=== PATIENT | female | born 1930 | race Caucasian/White ===

== ENCOUNTER 2017-01-13 09:04 | Inpatient (IN) | payer MEDICARE ==
[~2017-01-13] VITALS: Ht 157.5 cm; Wt 44.6 kg
[~2017-01-13 09:04] MED LIST: ACYCLOVIR 400M400 MG PO; AGGRENOX (D1 CAPSULE PO; CALCIUM 600600 M2 PO; FLAGYL500 M1 PO; FOLIC ACID0.4 MG PO; FOLIC ACID1 MG PO; MELOXICAM15 MG PO; METHOTREXATE 22.5 MG PO; Mobic7.5 MG; NITROFURANTOIN50 MG PO; OMEPRAZOLE40 MG PO; PINDOLOL10 MG PO; VICODIN 5/500 T1 TAB PO; VITAMIN D1000 IU PO
[2017-01-13 09:08] VITALS: BP 146/81
--- NOTE | 2017-01-13 09:11 | Emergency Room Report ---
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 Clinical Suspician of Infection? Mental Status: Sepsis Risk: Have you (or family members/close friends) recently traveled outside the [place]? If Yes, where/when: Have you had exposure to infectious disease within the past month? TB? Other? Specify: Source patient, RN notes reviewed Exam Limitations no limitations Comment Pt seen here on January 08 and January 11 for diarrhea and a UTI and comes back today with perrsist diarrhea. She has a history of RA and treated with some immunosuppressive drugs and is being followed by a at [facility] for some type of blood disorder felt to be due to those meds. She comes back to the ED today for worsening diarrhea and just feels really weak and run down. She is not eating or drinking much and appears to be dehydrated and pale at this time. She has had to have blood transfusions in the past Cardiac Chest Pain Chest pain indicative of cardiac No Timing/Duration week Severity moderate ALLERGIES Coded Allergies: Sulfa (Sulfonamide Antibiotics) (Mild, 01/08/17) heparin (Mild, 01/08/17) Home Medications Active Scripts Metronidazole (Flagyl) 500 MG PO TID #30 TAB Prov: 01/08/17 Reported Medications Omeprazole (Omeprazole 40MG) 40 MG PO DAILY #90 Meloxicam (Meloxicam 15MG) 15 MG PO BID #90 Folic Acid 2 MG PO DAILY #60 Aspirin 25/Dipyridamole 200MG (Aggrenox 25 MG-200 MG Capsule) 1 CAPSULE PO BID Methotrexate 2.5 MG PO WEEKLY CHOLECALCIFEROL (VITAMIN D3) (Vitamin D3) 1,000 IUNITS PO DAILY CALCIUM CARBONATE (Calcium Carbonate) 600 MG PO DAILY Pindolol 10 MG PO DAILY #180 NITROFURANTOIN MACROCRYSTAL (Nitrofurantoin) 50 MG PO DAILY #56 History Medical History General CAD? No Angina: No AR: No Hypertension? Yes Hyperlipidemia? Yes CHF? No COPD? No Asthma? No Anemia? Yes Hernia? No Thyroid Problems? No Hypothyroidism? No CVA? Yes Seizures? No Diabetes? No End Stage Renal Disease? No UTI? No Stones? No GB Disease: No Nephritic Syndrome? No Asplenia? No Hepatitis? No Sickle Cell Disease? No Arthritis? Yes Cataracts? No Glaucoma? No MRSA? No TB? No Cancer? No Immunization Hx DT/Tetanus Unknown Flu [id number] Flu Season Pneumonia Received In Past Surgical Hx Previous Surgery?Y HAND SURGERY-BILATERAL FOOT SURGERY Tonsils WRIST SURGERY-BILATERAL BILATERAL HIP LEFT KNEE Family History Family Hx Diabetes No CAD Yes Hypertension Yes Hyperlipidemia No Cancer No TB No Social History Alcohol Alcohol: No Review of Systems All Other Systems Reviewed and Negative Constitutional see HPI Gastrointestinal see HPI Physical Exam Vital Signs Vital Signs Date Time Temp Pulse Resp B/P Pulse O2 O2 Flow FiO2 Ox Delivery Rate 01/13 1229 87 16 132/67 98 01/13 1152 92 16 133/66 97 01/13 1103 101 16 129/65 94 01/13 1020 96 18 142/67 98 01/13 0952 102 18 139/75 97 01/13 0908 98.5 101 16 146/81 99 General Appearance moderate distress, cachetic, fatigued, pale Respiratory Status No: respiratory distress. 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 No Results/Orders Laboratory Tests 01/13/17 0920: Sodium 138, Potassium 3.1 L, Chloride 104, Carbon Dioxide 23, BUN 12, Creatinine 1.1 H, Estimated Creat Clear 24 L, Estimated GFR (MDRD) 47 L, Glucose 164 H, Calcium 7.5 L, Total Bilirubin 0.6, AST 14 L, ALT 11 L, Alkaline Phosphatase 65, Total Protein 5.5 L, Albumin 2.3 L, Globulin 3.2, Albumin/Globulin Ratio 0.7 L, WBC 5.5, RBC 3.05 L, Hgb 10.0 L, Hct 30.0 L, MCV 98.4 H, RDW 16.4, Plt Count 199, MPV 6.1 L, Gran % 77.2, Gran # 4.3, Lymphocytes % 10.8, Monocytes % 11.1 H, Eosinophils % 0.7, Basophils % 0.2, Lymphocytes # 0.6 L, Monocytes # 0.6, Eosinophils # 0.0, Basophils # 0.0, PUBS MCHC 33.3, MCH 32.8 H Current Medication Orders Sig/Paola Start time Last Medication Dose Route Stop Time Status Admin Sodium Chloride 1,000 ML .STK-MED ONE 01/13 1142 DC IV Diatrizoate Meglum/ 30 ML ONCE ONE 01/13 0945 DC 01/13 Diatrizoate Sod PO 01/13 0946 0944 Ondansetron HCl 4 MG ONCE ONE 01/13 0945 DC 01/13 IV 01/13 0946 0944 Sodium Chloride 10 ML PRN PRN 01/13 0945 AC IV 01/14 0932 Sodium Chloride 1,000 ML .Q1H1M 01/13 0945 DC 01/13 IV 01/13 1045 0944 Sodium Chloride 10 ML PRN PRN 01/13 0945 AC IV 01/14 0933 Sodium Chloride 1,000 ML .Q1H1M 01/13 0945 DC 01/13 IV 01/13 1045 1214 Sodium Chloride 10 ML PRN PRN 01/13 0945 AC IV 01/14 0933 Diatrizoate Meglum/ 0 .STK-MED ONE 01/13 0937 DC Diatrizoate Sod .ROUTE Ondansetron HCl 0 .STK-MED ONE 01/13 0937 DC .ROUTE Sodium Chloride 1,000 ML .STK-MED ONE 01/13 0933 DC IV Orders Procedure Date/time Status DIET-NOTHING BY MOUTH 01/[address] ABD/PELVIS REQ 01/13 0935 Complete IV SALINE LOCK 01/13 933 Active URINALYSIS/COMPLETE 01/13 933 Active STOOL OCCULT BLOOD 01/13 933 Active LACTIC ACID 01/13 933 Active DIARRHEA PANEL, PCR 01/13 933 Active CBC WITH AUTO DIFF 01/13 933 Complete CHEM 12 PROFILE 01/13 933 Complete XRAY/CT/US XRAY/CT/US CT abdomen, pelvis CT interpretation by discussed w/radiologist Time results known: 1229 CT Results large hiatal hernia, Cholelithiasis, Diverticulosis without diverticulitis and Bilat. ovarian cysts in an elderly WF Departure Departure Time of Disposition 1230 Disposition DC Home or Self Care(routine) Clinical Impression Primary Impression: Cholelithiasis Secondary Impressions: Diarrhea Qualifiers: Diarrhea type: unspecified type Qualified Code: R19.7 - Diarrhea, unspecified Ovarian cyst Qualifiers: Laterality: bilateral Qualified Code: N83.201 - Unspecified ovarian cyst, right side Post-menopausal Condition STABLE Referrals Josh GREENWOOD,A.C. (Family): 3 Days-Call Office Patient Instructions DI for Gallstones, DI for Ovarian Cyst, Diarrhea ( Alternative Therapy), Gallstones (Alternative Therapy), Loperamide Additional Instructions Use medicines as directed and followup with PCP to get further evaluation of Gallstones and Bilat. ovarian cysts. Discharge Counseling Counseled pt/family regarding diagnosis, test results, medications/RX, home care, follow up needs Prescriptions Current Visit Scripts LOPERAMIDE HCL (Loperamide) 2 MG PO QID #40 TAB ED Critical Care Critical Care No If Critical Care minutes are documented, the time involved in the performance of seperately reportable procedures was not counted toward critical care time documented. I directly delivered medical care to this critically ill and/or injured patient. Timely evaluation and treatment was necessary to address the significant organ system(s) dysfunction present in this patient. at 1234
[2017-01-13 09:38] LABS: LYMPH # 0.6 K/mm3 (0.7-4.5); LYMPH % 10.8 % (10-50.0)
--- NOTE | 2017-01-13 12:07 | RADIOLOGY REPORT PS360 ---
CT ABD PELVIS W/O CONTRAST COMPARISON: None HISTORY: Abdominal pain with some diarrhea TECHNIQUE: Multiple axial scans obtained from hemidiaphragms the pelvic floor and were performed with oral contrast only. Sagittal and coronal reformatted images were evaluated as well. FINDINGS: Scans through the lower chest show minimal atelectasis at both posterior gutters. There is a large hiatal hernia with essentially intrathoracic stomach with organoaxial volvulus of the stomach. There is moderate generalized cardio megaly. The liver spleen and pancreas appear grossly normal. There are 2 large calcified gallstones in a somewhat small gallbladder. The adrenal glands are normal. The kidneys are normal size, the right kidney is unusual anterior posterior axis a normal variation. There is a benign-appearing cortical cyst lower pole right kidney measuring 3.7 x 4.0 cm x 4.3c m. There is no obstructive uropathy of either kidney. The contrast filled loops of small bowel appear normal. There is prominent arteriosclerotic calcification of the, aorta but there is no aneurysm. I do not definitely identify the appendix but no pericecal inflammatory changes. There is a moderate amount stool in the cecum and ascending colon. There is diverticulosis of the sigmoid colon without definite evidence of diverticulitis. However there is prominent metallic streak artifact crossing the lower pelvis from bilateral hip prosthesis. There are cystic lesions in both adnexa both measuring 2 to 3 cm in size. There are likely is been previous hysterectomy but the artifact associated degrades images of the lower pelvis. There is generalized osteopenia and there is multilevel degenerative changes of the lower thoracic and lumbar spine. There is mild levoscoliotic curvature of the mid lumbar spine. The urinary bladder likely is decompressed but again very difficult to visualize. IMPRESSION: 1. Large hiatal hernia with intrathoracic stomach with organoaxial volvulus 2. Cholelithiasis 3. Mild diverticulosis sigmoid colon without evidence of diverticulitis 4. Probable bilateral ovarian cysts, other nonacute findings as described above.
[2017-01-13] MEDS ORDERED: LOPERAMIDE HCL2 M1 PO (12:34)
[2017-01-13 12:54] LABS: AEROMONAS NOT DETECTED (NOT DETECTE); ASTROVIRUS NOT DETECTED (NOT DETECTE); CYCLOSPORA CAYETANENSIS NOT DETECTED (NOT DETECTE); E COLI O157 NOT DETECTED (NOT DETECTE); ENTEROAGGREGATIVE E COLI NOT DETECTED (NOT DETECTE); ENTEROPATHOGENIC E COLI NOT DETECTED (NOT DETECTE); ENTEROTOXIGENIC E COLI NOT DETECTED (NOT DETECTE); NOROVIRUS NOT DETECTED (NOT DETECTE); SAPOVIRUS NOT DETECTED (NOT DETECTE); SHIGA-LIKE TOXIN PROD. E COLI NOT DETECTED (NOT DETECTE); SHIGELLA/ENTEROINVASIVE E COLI NOT DETECTED (NOT DETECTE); VIBRIO CHOLERAE NOT DETECTED (NOT DETECTE)
[2017-01-13 13:05] LABS: STOOL OCCULT BLOOD POSITIVE (NEG)
[2017-01-13 14:55] VITALS: BP 140/70
[2017-01-13 15:11] VITALS: BP 140/70
[2017-01-13 19:46] VITALS: BP 135/64
--- NOTE | 2017-01-13 20:35 | RADIOLOGY REPORT PS360 ---
CHEST-PORTABLE COMPARISON: Portable upright chest 11/16/2014 HISTORY: Generalized weakness TECHNIQUE: Oral upright chest FINDINGS: This is a somewhat poor inspiration however lung singer are clear of infiltrate. There is aortic tortuosity but no cardiomegaly and the vascularity is normal. There is no pleural fluid. There is increased density seen to the cardiac shadow which apparently is secondary to the patient's known large hiatal hernia and basically intrathoracic stomach as seen on the CT scan same date. IMPRESSION: Nonacute chest findings
[2017-01-13 21:38] VITALS: BP 135/64
[2017-01-13 23:46] VITALS: BP 125/63
[2017-01-14 03:39] VITALS: BP 114/59
[2017-01-14 07:26] VITALS: BP 121/65
--- NOTE | 2017-01-14 07:39 | HISTORY AND PHYSICAL REPORT ---
Demographics: Admit date: 01/13/17 Chief complaint: Weakness and diarrhea PRIMARY DIAGNOSIS: DIARRHEA Allergies: Coded Allergies: Sulfa (Sulfonamide Antibiotics) (Mild, 01/08/17) heparin (Mild, 01/08/17) History of present illness: History of present illness: 86-year-old white female with history of rheumatoid arthritis and prior stroke disease and increasing debility who came to the emergency apartment with several episodes of watery stools, weakness and fatigue. Was found to be orthostatic, and emergency Department treatment with IV fluids and antidiarrheal agents was ineffective. She was admitted to hospital for IV fluids overnight and this morning told her that she feels "a little bit better." Overnight viral stools relative have been negative, potassium levels in the emergency department were low but are pending this morning. Her only complaint today is of slight stomach pain from cramping from the diarrhea and a mild cough that she says has been nonproductive over the past couple of weeks. Past medical history: Family HX Diabetes No CAD Yes Hypertension Yes Hyperlipidemia Yes Cancer Yes TB No Immunization HX DT/Tetanus 5-10 Years Ago Flu [id number] Flu Season Pneumonia Received In Past Rec'd Unknown TB Test in last year Yes Result Negative General CAD? No Angina: No GA: No Hypertension? Yes Hyperlipidemia? Yes CHF? No DVT? No PE? No COPD? No Asthma? No Anemia? Yes GERD? No Gastric ulcers? No GI Bleed? No Hernia? No Thyroid Problems? No Hypothyroidism? No CVA? Yes Seizures? No Diabetes? No Renal Insuffiency? No UTI? Yes Stones? No GB Disease: No Nephritic Syndrome? No Asplenia? No Hepatitis? No Sickle Cell Disease? No Arthritis? Yes Migraines? No Cataracts? No Glaucoma? No MRSA? No HIV? No TB? No Anxiety? No Depression? No Cancer? No Past Surgical HX Previous Surgery?Y HAND SURGERY-BILATERAL FOOT SURGERY Tonsils WRIST SURGERY-BILATERAL BILATERAL HIP LEFT KNEE Current home meds: Active Scripts Metronidazole (Flagyl) 500 MG PO TID #30 TAB Prov: 01/08/17 Reported Medications Omeprazole (Omeprazole 40MG) 40 MG PO DAILY #90 Meloxicam (Meloxicam 15MG) 15 MG PO BID #90 Folic Acid 2 MG PO DAILY #60 Aspirin 25/Dipyridamole 200MG (Aggrenox 25 MG-200 MG Capsule) 1 CAPSULE PO BID Methotrexate 2.5 MG PO WEEKLY CHOLECALCIFEROL (VITAMIN D3) (Vitamin D3) 1,000 IUNITS PO DAILY CALCIUM CARBONATE (Calcium Carbonate) 600 MG PO DAILY Pindolol 10 MG PO DAILY #180 NITROFURANTOIN MACROCRYSTAL (Nitrofurantoin) 50 MG PO DAILY #56 Social Hx: Smoking HX Tobacco No Alcohol Alcohol: No Hx of Drug Use Drug Use? No Patien't marital status is single Patient's support system is excellent Review of systems: Constitutional malaise, weakness. No: fever. Respiratory cough. No: shortness of breath, SOB with excertion, SOB at rest. Cardiovascular No no symptoms reported Gastrointestinal/Abdominal see HPI Genitourinary No: no symptoms reported. Musculoskeletal No: no symptoms reported. Neurological Yes: weakness. Exam: Lab data for last 24 hours: Laboratory Tests 01/13/17 1240: Stool Occult Blood POSITIVE 01/13/17 1240: Stl Cyclospora species NOT DETECTED, Stool Rotavirus (PCR) NOT DETECTED, Stool Campylobacter PCR NOT DETECTED, Stool Giardia Lamblia PCR NOT DETECTED, Stl Norovirus GI/GII PCR NOT DETECTED, Adenovirus (PCR) NOT DETECTED, C. difficile Tox (PCR) NOT DETECTED, E. coli (PCR) NOT DETECTED, Yersinia (PCR) NOT DETECTED 01/13/17 0920: Sodium 138, Potassium 3.1 L, Chloride 104, Carbon Dioxide 23, BUN 12, Creatinine 1.1 H, Estimated Creat Clear 24 L, Estimated GFR (MDRD) 47 L, Glucose 164 H, Calcium 7.5 L, Total Bilirubin 0.6, AST 14 L, ALT 11 L, Alkaline Phosphatase 65, Total Protein 5.5 L, Albumin 2.3 L, Globulin 3.2, Albumin/Globulin Ratio 0.7 L, WBC 5.5, RBC 3.05 L, Hgb 10.0 L, Hct 30.0 L, MCV 98.4 H, RDW 16.4, Plt Count 199, MPV 6.1 L, Gran % 77.2, Gran # 4.3, Lymphocytes % 10.8, Monocytes % 11.1 H, Eosinophils % 0.7, Basophils % 0.2, Lymphocytes # 0.6 L, Monocytes # 0.6, Eosinophils # 0.0, Basophils # 0.0, PUBS MCHC 33.3, MCH 32.8 H Admission vital signs: 1ST Vital Signs Result Date Time Pulse Ox 99 01/14 908 B/P 146/81 01/14 908 Temp 98.5 01/13 09 Pulse 101 01/13 0908 Resp 16 01/13 09 O2 Delivery ROOM AIR 01/13 0365 Additional information: Patient is pleasant, talkative, alert, oriented. Normal cranial facial nerve exam. Oropharynx dry but clear. Lungs are clear in the anterior singer, heart rate regular. Abdomen is soft minimally tender in the epigastric muscular areas. No abdominal masses palpable. Extremities are dry but warm and well perfused. Plan: Problem List 1. Diarrhea 2. Dehydration 3. Hypokalemia Plan: Continue gentle fluid hydration. No need for antibiotics at this point, supportive care. Replace potassium as indicated. Cautiously advance diet. at 0738
[2017-01-14 07:48] LABS: LYMPH # 0.5 K/mm3 (0.7-4.5); LYMPH % 12.9 % (10-50.0)
[2017-01-14 07:58] LABS: HEMOGLOBIN 9.1 g/dL (12.2-16.2)
[2017-01-14 08:04] VITALS: BP 121/65
--- NOTE | 2017-01-14 12:55 | PHARMACY CLINIC NOTE ---
Patient Demographics Patient Demographics Admission date: 01/13/17 Date: 01/14/17 Time: 1254 Allergies Coded Allergies: Sulfa (Sulfonamide Antibiotics) (Mild, 01/08/17) heparin (Mild, 01/08/17) HEIGHT- FT: 5 IN: 2.00 K.594 VTE General Information Labs: Laboratory Tests 01/14 0630 Hematology Hgb (12.2 - 16.2 g/dL) 9.1 L Hct (37.0 - 47.0 %) 26.4 L Plt Count (142 - 424 K/mm3) 168 Disclaimer The following section includes nursing documentation that has been pulled in for pharmacy review. Patient's VTE score: 2 Patient's VTE Risk: VERY LOW RISK Clinical trial participant? No VTE prophylaxis [id number] [id number] VTE prophylaxis ordered? Yes Type of prophylaxis/treatment: ICD at 1252
[2017-01-14 20:30] VITALS: BP 127/59
[2017-01-15] VITALS (7 sets, daily range): BP systolic 114–139; BP diastolic 46–68
[2017-01-15 06:46] LABS: HEMOGLOBIN 8.9 g/dL (12.2-16.2); LYMPH # 0.7 K/mm3 (0.7-4.5); LYMPH % 20.7 % (10-50.0)
--- NOTE | 2017-01-15 07:05 | ACUTE CARE PROGRESS NOTE (QUA) ---
Progress Notes Subjective Date 01/15/17 Time 0702 Note Patient continues to have diarrhea. Patient states she awakens each morning and thinks symptoms have improved and then around 10:00 she will begin having loose stools. Over the last 24 hours she has had "several" loose stools. This all began after she was treated with antibiotics for urinary tract infection. Diarrhea PCR panel was negative for any bacterial or viral infection. Stool for ova and parasites was negative as well. Urine culture from January 08 grew E. coli that was ESBL positive. She is resting comfortably. She awakens easily. She is pale in appearance. Lungs are clear to auscultation. Heart has regular rate and rhythm. Abdomen is soft with mild LEFT lower quadrant tenderness to palpation. I'm going to add on probiotic for her diarrhea. Decrease IV fluids. Continue her current diet. Repeat urinalysis and culture Objective Findings Last VS-Temp:98.4 B/P:114/46 Pulse:100 Resp:16 SaO2:94 ROOM AIR Last weight lbs:98 oz:5 K.594 Method:Bed Scales Laboratory Tests 01/15/17 0610: WBC 3.5 L, RBC 2.64 L, Hgb 8.9 L, Hct 26.0 L, MCV 98.6 H, RDW 16.5, Plt Count 162, MPV 5.9 L, Gran % 66.1, Gran # 2.3, Lymphocytes % 20.7, Monocytes % 11.8 H, Eosinophils % 1.3, Basophils % 0.2, Lymphocytes # 0.7, Monocytes # 0.4, Eosinophils # 0.0, Basophils # 0.0, PUBS MCHC 34.3, MCH 33.8 H Reviewed: medications, vital signs, lab results Assessment/Plan Problem List 1. Diarrhea Qualifiers: Diarrhea type: unspecified type Qualified Code: R19.7 - Diarrhea, unspecified 2. Dehydration 3. Hypokalemia Patient condition Stable Plan: continue current care, make medication changes This inpt stay is expected to cross 2 MNs from start of care Yes at 0705
[2017-01-15 14:56] LABS: URINE BILIRUBIN - DIPSTICK NEGATIVE (NEG); URINE BLOOD 3+ (NEG)
[2017-01-16 00:01] VITALS: BP 148/61
[2017-01-16 04:49] VITALS: BP 135/72
--- NOTE | 2017-01-16 07:25 | ACUTE CARE PROGRESS NOTE (QUA) ---
Progress Notes Subjective Date 01/16/17 Time 0723 Note Patient continues to have small frequent loose stools. She does believe they've decreased in frequency compared to the previous 24 hours. Appetite remains poor. She denies nausea and vomiting but has had intermittent episodes of abdominal discomfort. She does not appear in any distress this morning. Abdomen is soft and nontender with active bowel sounds. Review of her previous ER visit resulted in a urine culture positive for E. coli that was ESBL positive. Patient was started on Invanz yesterday once urinalysis was repeated and was found to be abnormal. Objective Findings Last VS-Temp:98.2 B/P:135/72 Pulse:92 Resp:16 SaO2:95 ROOM AIR Last weight lbs:98 oz:5 K.594 Method:Bed Scales Laboratory Tests 01/15/17 1440: Urine Color YELLOW, Urine Appearance SL CLOUDY, Urine pH 6.0, Ur Specific [place] <= 1.005, Urine Protein NEGATIVE, Urine Ketones NEGATIVE, Urine Blood 3+ H, Urine Nitrate NEGATIVE, Urine Bilirubin NEGATIVE, Urine Urobilinogen 0.2, Ur Leukocyte Esterase 1+ H, Urine RBC 50-100, Urine WBC 5-10, Ur Squamous Epith Cells 5-10, Urine Bacteria 2+, Urine Glucose NEGATIVE Microbiology 01/15 1440 URINE CC: Urine Culture - RECD Reviewed: medications, vital signs, lab results Assessment/Plan Problem List 1. Diarrhea Qualifiers: Diarrhea type: unspecified type Qualified Code: R19.7 - Diarrhea, unspecified 2. Dehydration 3. Hypokalemia 4. UTI (urinary tract infection) 5. E coli infection 6. Infection due to ESBL-producing Escherichia coli Patient condition Stable Plan: continue current care This inpt stay is expected to cross 2 MNs from start of care Yes at 0724
[2017-01-16 07:38] VITALS: BP 143/72
[2017-01-16 10:01] VITALS: BP 143/72
[2017-01-16 15:28] VITALS: BP 143/72
--- NOTE | 2017-01-16 16:32 | Discharge Summary ---
Demographics Admit date: 01/13/17 Discharge date: 01/16/17 Discharge diagnoses Problem List 1. Diarrhea 2. Dehydration 3. Hypokalemia 4. UTI (urinary tract infection) 5. E coli infection 6. Infection due to ESBL-producing Escherichia coli History of present illness History of present illness 86-year-old white female with history of rheumatoid arthritis and prior stroke disease and increasing debility who came to the emergency apartment with several episodes of watery stools, weakness and fatigue. Was found to be orthostatic, and emergency Department treatment with IV fluids and antidiarrheal agents was ineffective. She was admitted to hospital for IV fluids overnight and this morning told her that she feels "a little bit better." On admission diarrhea PCR panel was performed which was negative. Patient continued to have bowel urgency with small loose stools each day. Patient had upward of 10 bowel movements per day. Etiology of her diarrhea could not be determined so patient was transferred to [facility]. I arranged transfer and spoke with hospitalist Dr. Barrientos. I also spoke with Dr. Robb who agreed to see the patient in consultation when she was admitted. Patient was dehydrated on admission and this was corrected with IV fluids. Patient was hypokalemic on admission and this is corrected with intravenous and oral potassium supplementation Patient had a urinary tract infection that was E. coli, ESBL positive. Patient was started on Invanz on January 15. Medications Medications: Discharge meds are as noted. Follow up Follow up in office in: 4 WEEKS with: Josh GREENWOOD,A.C. at [phone]
== END 2017-01-16 15:50 | disposition short-term general hospital (02) | DRG 641 ==
LOC: ER 09:04 → 2ND 13:02 → ER 13:02 → 2ND 13:02
PROVIDERS: Family Medicine; General Practice; Internal Medicine Adolescent Medicine
DX: E86.0 Dehydration (principal); N39.0 Urinary tract infection, site not specified; M06.9 Rheumatoid arthritis, unspecified; R19.7 Diarrhea, unspecified; E87.6 Hypokalemia; I95.1 Orthostatic hypotension; Z86.73 Personal history of transient ischemic attack (TIA), and cerebral infarction without residual deficits; B96.20 Unspecified Escherichia coli [E. coli] as the cause of diseases classified elsewhere
CPT/HCPCS: J1335; J2405